=== PATIENT | male | born 1995 | race Two or more races ===

== ENCOUNTER 2018-03-03 07:32 | Emergency (ER) | payer OTHER ==
--- NOTE | 2018-03-03 08:03 | EDPHY ---
HPI/HX/ROS/PE/MDM Narrative: CHIEF COMPLAINT: Left knee pain HISTORY OF PRESENT ILLNESS: The patient is a 23 y/o male arriving via EMS complaining of left knee pain while sitting down at the gym this morning. Prior to the injury he was working out including high knees and jumping jacks. When he tried sitting down on a mat at the gym, he heard a popping in his left knee and fell back. Patient describes some external rotation at the hip and valgus stress on the knee while he was going to sit in a cross-legged position. He denies hitting his head upon falling backwards. He tried standing up, but had difficulty and has been unable to bear weight since. He denies taking medications for his pain. He denies an abnormal appearance to his knee. No numbness or tingling in his foot. He denies prior injury of his knee or prior history of surgery. No fever, chills, chest pain, shortness of breath, palpitations, vomiting, diarrhea, urinary complaints, headache, lightheadedness. REVIEW OF SYSTEMS: Aside from elements discussed in the HPI, a comprehensive 10-system review of systems was reviewed and is negative. PAST MEDICAL HISTORY: Denies SOCIAL HISTORY: Lives in [place], employed, student at VITAL SIGNS: Reviewed by me GENERAL: Well-developed, well-nourished, resting comfortably in no respiratory distress. EXTREMITIES: Left Knee: Area of most pain is at the lateral joint line, near the popliteal fossa, almost where hamstrings tendon is inserting. His extensor mechanism is intact. Limited ROM of left knee secondary to pain. Patella is in normal position. No patellar tenderness or pain. No anterior joint line pain. No medial joint line pain. No significant swelling. Normal straight leg raise. Good pulses distally. Calf compartment is soft and nontender. No edema. Otherwise range of motion is normal throughout. Portions of this note were transcribed by a outside medical sales representative. I personally performed a history, physical exam, medical decision making, and confirmed accuracy of information the transcribed note. ED Course: The patient is a 23 y/o male arriving via EMS presenting with left knee pain while sitting down cross leg did at the gym this morning. On exam the area of most pain is lateral left knee popliteal fossa almost where the hamstrings tendon insertion is. He has limited ROM of his left knee secondary to pain but his extensor mechanism is intact. He has good pulses distally and his calf compartment is soft and nontender. Left knee x-ray ordered; 600mg PO Motrin administered. 0845: I reviewed the patient's knee x-ray which reveals no significant findings. The patient most likely has a left knee sprain. 0852: Reassessed patient and discussed imaging findings. I have advised him to follow up with an orthopedic surgeon in the next 3-4 days. I have also given him my RICE instructions and advised him to wear a knee immobilizer during the day if it improves his pain. Return precautions provided; patient is comfortable with this plan. MDM: Differential diagnosis for the patient's injury was considered including but not limited to contusion, abrasion, laceration, fracture, open fracture, or dislocation. - Data Points Imaging Results: Imaging Impressions Knee X-Ray 03/03/18 08:00 Impression: No evidence for acute osseous abnormality left knee. Imaging: I viewed and interpreted images myself Medications Given: Discontinued Medications Ibuprofen (Motrin) 600 mg PO EDNOW ONE Stop: 03/03/18 08:44 Last Admin: 03/03/18 08:53 Dose: 600 mg General Time Seen by Provider: 03/03/18 08:01 Initial Vital Signs: Initial Vital Signs Temperature (C) 36.5 C 03/03/18 07:40 Heart Rate 69 03/03/18 07:40 Respiratory Rate 16 03/03/18 07:40 Blood Pressure 154/49 H 03/03/18 07:40 O2 Sat (%) 96 03/03/18 07:40 O2 Delivery Mode Room Air Allergies/Adverse Reactions: No Known Allergies Allergy (Unverified 03/03/18 07:39) Home Medications: Medication Instructions Recorded NK [No Known Home Meds] 03/03/18 Departure - Departure Disposition: Home, Routine, Self-Care Clinical Impression: Left knee sprain Qualifiers: Encounter type: initial encounter Involved ligament of knee: unspecified ligament Qualified Code(s): S83.92XA - Sprain of unspecified site of left knee, initial encounter Condition: Good Instructions: Knee Sprain (ED), Knee Pain (ED) Additional Instructions: Wear the knee immobilizer during the day if it make the knee pain better. Do not wear it at night. Mainstay of therapy is rest, ice, immobilization, elevation, and nonsteroidal anti-inflammatories for pain and to decrease swelling. Apply ice for 20-30 minutes every 2-3 hours for the next 48 hours. I recommend Ibuprofen (Motrin,Advil) or Naproxen Sodium (Aleve) for pain and anti-inflammatory effects. You may take either one, but do not take both. Your dose is: Ibuprofen 600mg every 6-8 hours with food. OR Naproxen Sodium (Aleve) 220mg every [address] Follow[address] with the Dr. Triplett, orthopedic surgeon, in the next 3-4 days. Return to the emergency department for worsening pain, swelling, numbness, weakness or other concerns. Referrals: Sports Medicine [Outside] - As per Instructions Natan Triplett MD [Medical Doctor] - As per Instructions Stand Alone Forms: School Excuse Report Scribed for: Nancy Rivera Report Scribed by: Lian Hu Date of Report: 03/03/18 Time of Report: 08:02
[2018-03-03] MEDS ORDERED: IBUPROFEN 600 MG TAB PO ONE (08:43)
[2018-03-03 08:57] VITALS: BP 144/50
== END 2018-03-03 09:15 | disposition home or self-care (01) ==
DX: S83.92XA Sprain of unspecified site of left knee, initial encounter (principal); X50.0XXA Overexertion from strenuous movement or load, initial encounter; Y93.A2 Activity, calisthenics; Y92.39 Other specified sports and athletic area as the place of occurrence of the external cause; Y99.8 Other external cause status
CPT/HCPCS: L1830